=== PATIENT | female | born 1995 | race Two or more races ===

== ENCOUNTER 2025-05-18 21:29 | Inpatient (IN) | payer MEDICAID, OTHER, SELFPAY ==
[2025-05-18 21:59] VITALS: BMI 34.0
[2025-05-18 23:14] LABS: Glucose, Urine (Dipstick) Normal (Negative); Leukocyte Negative (Negative); Protein, Urine (Dipstick) Negative (Neg-Trace); Specific Gravity, Urine 1.005 (1.005-1.030)
[2025-05-18 23:18] LABS: ALT (SGPT) Less than 7 U/L (Less than 34); AST (SGOT) 21 U/L (11-34); Albumin 2.5 g/dL (3.1-4.5); Alkaline Phosphatase 239 U/L (40-110); Anion Gap 14 mmol/L (10-20); BUN (Urea Nitrogen) 4 mg/dL (7.0-18.7); Bilirubin, Total 0.5 mg/dL (0.3-1.2); Calc. Creatinine Clearance 189 mL/min (70-130); Calcium 9.1 mg/dL (7.8-10.44); Carbon Dioxide 20 mmol/L (22-29); Chloride 107 mmol/L (98-107); Globulin 3.7 g/dL (2.4-3.5); Glucose 73 mg/dL (70-105); Potassium 3.7 mmol/L (3.5-5.1); Sodium 137 mmol/L (136-145)
[2025-05-18 23:28] LABS: Protein, Urine Random Quant Less than 10 mg/dL (1-14)
[2025-05-18] MEDS ORDERED: Carboprost 250 MCG/ML AMP IM PRN (23:29)
[2025-05-18] MEDS ORDERED: Ondansetron PF 4 MG/2 ML Vial IVP PRN (23:29)
[2025-05-18] MEDS ORDERED: Calcium Gluc 4.6 MEQ/10 ML (100 MG/ML) SLOW IVP PRN (23:29)
[2025-05-18] MEDS ORDERED: hydrALAZINE 20 MG/ML VIAL SLOW IVP PRN (23:29)
[2025-05-18] MEDS ORDERED: Tranexamic Acid 1,000 MG/10 ML VIAL IVP PRN (23:29)
[2025-05-18] MEDS ORDERED: Oxytocin 30 units/NS 500 ML 500 ML IV SCH (23:30)
[2025-05-18 23:33] LABS: Bacteria/HPF None Seen HPF (None Seen); CAUTI Indications for Culture Pregnancy; RBC/HPF None Seen HPF (0-3); WBC/HPF 0-3 HPF (0-3)
[2025-05-18] MEDS: hydrALAZINE 20 MG/ML VIAL SLOW IVP PRN (23:33)
[2025-05-18 23:34] LABS: Urine Culture Reflex Yes Yes
[2025-05-18 23:43] LABS: #Basophils 0.03 10x3/uL (0.0-0.2); #Eosinophils 0.12 10x3/uL (0.0-0.5); #Monocytes 0.78 10x3/uL (0.0-1.1); #Neutrophils 6.12 10x3/uL (1.5-8.4); %Basophils 0.3 % (0.0-2.0); %Eosinophils 1.4 % (0.0-6.0); %Lymphocytes 19.1 % (18.0-47.0); %Monocytes 8.9 % (0.0-10.0); %Neutrophils 69.5 % (40.0-75.0); Hematocrit 25.0 % (34.9-44.5); Hemoglobin 7.3 g/dL (12.0-15.5); Mean Corpuscular Hemoglobin 20.4 pg (27.0-33.0); Mean Corpuscular Volume 69.8 fL (81.6-98.3); Platelet Count 299 10x3/uL (150-450); Red Blood Cell (RBC) Count 3.58 10x6/uL (3.90-5.03); White Blood Cell (WBC) Count 8.80 10x3/uL (3.5-10.5)
[2025-05-18] MEDS: Magnesium Sulfate 20 gm/500 ml 20 GM/500 ML BAG IVPB SCH (23:52)
[2025-05-19 00:07] LABS: Cocaine Metabolite Screen PRELIM POSITIVE (Negative); THC/Cannabinoid Screen Negative (Negative); Tricyclic Screen Negative (Negative)
[2025-05-19 00:20] LABS: Hep B Surf Ag - L&D Non-Reactive S/CO (NonReactive)
[2025-05-19 01:17] LABS: Syphilis Antibody Index 23.00 S/CO (<1.00 Non-Reactive)
[2025-05-19 01:18] LABS: Syphilis Titer 1:8 Titer (Nonreactive)
[2025-05-19] MEDS: Acetaminophen 500 MG TAB PO PRN (02:01)
[2025-05-19 02:33] LABS: HIV (1/2) Antibody/Antigen Non-Reactive (NonReactive); HIV 1/2 INDEX 0.07 S/CO (<1.00)
[2025-05-19] MEDS: hydrALAZINE 20 MG/ML VIAL SLOW IVP PRN (04:03)
[2025-05-19] MEDS: Famotidine/PF 20 mg/2ml Vial SLOW IVP SCH (05:29)
[2025-05-19] MEDS ORDERED: Bicitra 30 ML UDCUP PO PRN (08:33)
[2025-05-19] MEDS ORDERED: Famotidine/PF 20 mg/2ml Vial SLOW IVP PRN (08:33)
[2025-05-19] MEDS ORDERED: Azithromycin 500 MG in Sodium Chloride 0.9% 250 ML 250 ML IVPB SCH (08:45)
[2025-05-19 10:28] LABS: Analyzer IN Cardio CS NICU; RapidComm Collect By NRU.RR; pH (Cord, venous) 7.183 (7.250-7.350)
[2025-05-19] MEDS ORDERED: Acetaminophen/Codeine 30-300mg Tablet PO PRN (10:43)
[2025-05-19] MEDS ORDERED: hydrALAZINE 20 MG/ML VIAL SLOW IVP PRN (10:43)
[2025-05-19] MEDS: Diphenoxylate HCl/Atropine Tablet PO PRN (10:55)
[2025-05-19] MEDS ORDERED: Bisacodyl 10 MG SUPP PR PRN (11:13)
[2025-05-19] MEDS: Bicillin LA 2.4 MILL.UNITS/4 ML SYRINGE IM SCH (11:27)
[2025-05-19] MEDS: Ketorolac Tromethamine 30 MG (1 mL) VIAL IVP SCH ×2 (12:43→18:22)
[2025-05-19] MEDS: Acetaminophen/Codeine 30-300mg Tablet PO PRN (14:12)
[2025-05-19] MEDS ORDERED: Ondansetron PF 4 MG/2 ML Vial IVP PRN ×3 (14:23→14:29)
[2025-05-19] MEDS ORDERED: Acetaminophen 325 MG TAB PO PRN (14:23)
[2025-05-19] MEDS ORDERED: Meperidine HCl/PF 25 MG (1 mL) VIAL SLOW IVP PRN (14:29)
[2025-05-19] MEDS ORDERED: Ketorolac Tromethamine 30 MG (1 mL) VIAL IVP SCH (14:30)
[2025-05-19] MEDS ORDERED: ACTIVE EPIDURAL FS SCH (14:30)
[2025-05-19] MEDS ORDERED: fentaNYL 2 mcg/Ropivacaine 0.2% Epidural 100 ML CADD EPIDURAL SCH (14:30)
[2025-05-19] MEDS: diphenhydrAMINE 50 MG/ML VIAL IVP PRN ×2 (14:41→20:45)
[2025-05-19] MEDS: Magnesium Sulfate 20 gm/500 ml 20 GM/500 ML BAG ONE (17:36)
[2025-05-19] MEDS ORDERED: Ibuprofen 800 MG TAB PO SCH (20:00)
[2025-05-20] MEDS: Magnesium Sulfate 20 gm/500 ml 20 GM/500 ML BAG ONE ×2 (02:17→11:43)
[2025-05-20 07:11] LABS: Hematocrit 26.5 % (34.9-44.5); Hemoglobin 8.0 g/dL (12.0-15.5); Mean Corpuscular Hemoglobin 21.1 pg (27.0-33.0); Mean Corpuscular Volume 69.9 fL (81.6-98.3); Platelet Count 274 10x3/uL (150-450); Red Blood Cell (RBC) Count 3.79 10x6/uL (3.90-5.03); White Blood Cell (WBC) Count 12.92 10x3/uL (3.5-10.5)
[2025-05-20] MEDS: Erythromycin Base 0.5% Oint 1 GM TUBE ONE (11:44)
[2025-05-20] MEDS: Oxytocin 10 UNITS/ML VIAL ONE (11:44)
[2025-05-20] MEDS: Boostrix 0.5 ML (Tdap) VIAL (>/=7 yrs of age) IM ONE (11:44)
[2025-05-20] MEDS: KETAMINE 100 MG/ML (5ML VIAL) ONE (11:44)
[2025-05-20] MEDS ORDERED: Acetaminophen/Codeine 30-300mg Tablet PO PRN ×2 (14:26)
[2025-05-20] MEDS: Acetaminophen/Codeine 30-300mg Tablet PO PRN (14:51)
[2025-05-20] MEDS ORDERED: Simethicone Chewable 80 MG TAB PO PRN (19:11)
[2025-05-21] MEDS: Ibuprofen 800 MG TAB PO SCH (00:17)
[2025-05-22 06:07] LABS: Hematocrit 30.6 % (34.9-44.5); Hemoglobin 8.9 g/dL (12.0-15.5); Mean Corpuscular Hemoglobin 20.9 pg (27.0-33.0); Mean Corpuscular Volume 71.8 fL (81.6-98.3); Platelet Count 395 10x3/uL (150-450); Red Blood Cell (RBC) Count 4.26 10x6/uL (3.90-5.03); White Blood Cell (WBC) Count 12.76 10x3/uL (3.5-10.5)
[2025-05-22 06:47] LABS: Giant Platelets SLIGHT HPF (0-5); Polychromasia SLIGHT = 2-3 cells (100X) (0-2/hpf)
[2025-05-22 06:48] LABS: #Basophils 0.08 10x3/uL (0.0-0.2); #Eosinophils 0.22 10x3/uL (0.0-0.5); #Monocytes 1.03 10x3/uL (0.0-1.1); #Neutrophils 9.20 10x3/uL (1.5-8.4); %Basophils 0.6 % (0.0-2.0); %Eosinophils 1.7 % (0.0-6.0); %Lymphocytes 15.4 % (18.0-47.0); %Monocytes 8.1 % (0.0-10.0); %Neutrophils 72.2 % (40.0-75.0)
[2025-05-22] MEDS: Acetaminophen/Codeine 30-300mg Tablet PO PRN (08:32)
[2025-05-22] MEDS: Milk Of Magnesia 30 ML UDCUP PO PRN (08:32)
[2025-05-22 14:08] VITALS: BP 130/75; TEMP 98
== END 2025-05-22 14:45 | disposition home or self-care (01) | DRG 787 ==
LOC: CSHLD/OP 21:29 → CSHLD 23:36 → EEVIPCON 23:36 → CSHLD 05-19 10:08 → CSHPP 05-20 11:10
PROVIDERS: ADMIT Obstetrics & Gynecology; ATTEND Obstetrics & Gynecology
PROC: 10D00Z1 Extraction of Products of Conception, Low, Open Approach (ICD-10-PCS; principal; 2025-05-19)
PROC: 30233N1 Transfusion of Nonautologous Red Blood Cells into Peripheral Vein, Percutaneous Approach (ICD-10-PCS; 2025-05-19)
DX: O14.14 Severe pre-eclampsia complicating childbirth (principal); O98.12 Syphilis complicating childbirth; O99.214 Obesity complicating childbirth; O99.324 Drug use complicating childbirth; Z98.891 History of uterine scar from previous surgery; E66.811 Obesity, class 1; F14.10 Cocaine abuse, uncomplicated; O99.03 Anemia complicating the puerperium
CPT/HCPCS: 36415; 36430; 51702; 76815; 80053; 80306; 81001; 82570; 82805; 84156; 85025; 85027; 86593; 86762; 86780; 86850; 86900; 86901; 87086; 87340; 87389; 99285; J0360; J0561; J1200; J1308; J1885; J2250; J2270; J2274; J2310; J2550; J2590; J3010; J3475; J7120; P9016

== ENCOUNTER 2025-05-24 11:43 | Emergency (ER) | payer MEDICAID ==
[2025-05-24 13:54] LABS: #Basophils 0.06 10x3/uL (0.0-0.2); #Eosinophils 0.22 10x3/uL (0.0-0.5); #Monocytes 1.37 10x3/uL (0.0-1.1); #Neutrophils 9.60 10x3/uL (1.5-8.4); %Basophils 0.4 % (0.0-2.0); %Eosinophils 1.6 % (0.0-6.0); %Lymphocytes 16.5 % (18.0-47.0); %Monocytes 9.9 % (0.0-10.0); %Neutrophils 69.5 % (40.0-75.0); Hematocrit 33.4 % (34.9-44.5); Hemoglobin 9.7 g/dL (12.0-15.5); Mean Corpuscular Hemoglobin 20.9 pg (27.0-33.0); Mean Corpuscular Volume 71.8 fL (81.6-98.3); Platelet Count 535 10x3/uL (150-450); Red Blood Cell (RBC) Count 4.65 10x6/uL (3.90-5.03); White Blood Cell (WBC) Count 13.82 10x3/uL (3.5-10.5)
[2025-05-24 14:08] LABS: ALT (SGPT) 31 U/L (Less than 34); AST (SGOT) 48 U/L (11-34); Albumin 3.0 g/dL (3.1-4.5); Alkaline Phosphatase 164 U/L (40-110); Anion Gap 15 mmol/L (10-20); BUN (Urea Nitrogen) 17 mg/dL (7.0-18.7); Bilirubin, Total 0.2 mg/dL (0.3-1.2); Calc. Creatinine Clearance 0 mL/min (70-130); Calcium 9.6 mg/dL (7.8-10.44); Carbon Dioxide 21 mmol/L (22-29); Chloride 105 mmol/L (98-107); Globulin 4.8 g/dL (2.4-3.5); Glucose 65 mg/dL (70-105); Potassium 4.3 mmol/L (3.5-5.1); Sodium 137 mmol/L (136-145)
[2025-05-24 15:00] LABS: Glucose, Urine (Dipstick) Normal (Negative); Leukocyte 500 (Negative); Protein, Urine (Dipstick) 30 mg/dl (Neg-Trace); Specific Gravity, Urine 1.015 (1.005-1.030)
[2025-05-24 15:21] LABS: CAUTI Indications for Culture Pelvic or flank pain; RBC/HPF Greater than 50 HPF (0-3)
[2025-05-24 15:22] LABS: Bacteria/HPF 2+ HPF (None Seen); Mucous/LPF 1+ LPF (<2+)
[2025-05-24 15:23] LABS: Urine Culture Reflex Yes Yes
== END 2025-05-24 16:08 | disposition home or self-care (01) ==
LOC: CSHERS 11:43
DX: O86.20 Urinary tract infection following delivery, unspecified (principal); N39.0 Urinary tract infection, site not specified; O16.5 Unspecified maternal hypertension, complicating the puerperium; O87.8 Other venous complications in the puerperium
CPT/HCPCS: 36415; 80053; 81001; 85025; 87086; 93005; 99284